=== PATIENT | male | born 1990 | race Caucasian/White ===

== ENCOUNTER 2016-12-16 14:58 | Emergency (ER) | payer MEDICAID ==
[~2016-12-16] VITALS: Wt 84.1 kg
[~2016-12-16 14:58] MED LIST: AUG875 PO; IBUP-1542 PO; OFLO5DRO7 RIGHT EAR
[2016-12-16 15:29] VITALS: RESP 18
[2016-12-16] MEDS ORDERED: LIDOCAINE/MYLANTA 40 ML BTL PO ONE (15:30)
--- NOTE | 2016-12-16 16:00 | ERD ---
ER Documentation Chief Complaint Date/Time DATE: 12/16/16 TIME: 15:58 Chief Complaint states he feels like something is stuck in his throat, airway intact HPI Patient is a 26-year-old male with no medical problems who presents with a sore throat. He said that he was given a smoothie to drink by his niece and that after he started drinking it she started laughing and that maybe there was something in the drink. He did not ask her if there was anything in the drink however and she did not tell him that there was. He feels like there might be something stuck in his neck and he says that when he moves his neck to the right or left he has pain. He has had no treatment as of yet. This happened today. He has no trouble speaking. He has no trouble breathing. He goes to a local clinic for his primary care. Upon review of old medical records the patient has multiple visits for various complaints. ROS All systems reviewed and are negative except as per history of present illness. Medications Home Meds Active Scripts Ibuprofen* (Motrin*) 600 Mg Tab, 600 MG PO Q6H Y for PAIN for 14 Days, TAB Prov:EJ MOHAN NP 05/18/15 Amoxicillin-Clavulanate K* (Augmentin*) 875 Mg Tab, 875 MG PO BID, #10 TAB Prov:CARLTON CARRILLO PA-C 01/02/15 Ofloxacin* (Floxin* Otic) 0.3% -10 Ml Soln, 10 DROP RIGHT EAR DAILY, #1 BOTTLE Prov:CARLTON CARRILLO PA-C 01/02/15 Allergies Allergies: Coded Allergies: acetaminophen (Verified Allergy, Mild, rash, 01/02/15) dextromethorphan (Verified Allergy, Mild, rash, 01/02/15) doxylamine (Verified Allergy, Mild, rash, 01/02/15) pseudoephedrine (Verified Allergy, Mild, rash, 01/02/15) PMhx/Soc History of Surgery: No Anesthesia Reaction: No Hx Neurological Disorder: No Hx Respiratory Disorders: No Hx Cardiac Disorders: No Hx Psychiatric Problems: No Hx Miscellaneous Medical Probl: No Hx Alcohol Use: Yes Hx Substance Use: No Hx Tobacco Use: Yes (OCCASSIONALLY) Smoking Status: Light tobacco smoker FmHx Family History: diabetes Physical Exam Vitals Vital Signs Date Time Temp Pulse Resp B/P Pulse Ox O2 Delivery O2 Flow Rate FiO2 12/16/16 15:29 18 98 Room Air 12/16/16 15:02 98.0 98 20 140/83 97 Physical Exam Const: No acute distress Head: Atraumatic Eyes: Normal Conjunctiva ENT: Normal External Ears, Nose and Mouth. No foreign body visualized Neck: Full range of motion..~ No meningismus. No stridor over the neck Resp: Clear to auscultation bilaterally Cardio: Regular rate and rhythm, no murmurs Abd: Soft, non tender, non distended. Normal bowel sounds Skin: No petechiae or rashes Back: No midline or flank tenderness Ext: No cyanosis, or edema Neur: Awake and alert Psych: Normal Mood and Affect Results 24 hrs Current Medications Medications (Trade) Dose Ordered Sig/Jovana Route PRN Reason Start Time Stop Time Status Last Admin Dose Admin Miscellaneous Medication (Gi Cocktail (2)) 40 ml ONCE ONCE PO 12/16/16 15:30 12/16/16 15:31 DC 12/16/16 15:25 Procedures/MDM Smoking Cessation Therapy: Pt. was lectured for greater than 3 minutes on the health risks of continued smoking and the benefits of cessation. Patient is a 26-year-old male who presents with a sore throat. I see no sign of foreign body ingestion at this time. There is no difficulty with swallowing or speaking. I believe the risks of doing imaging test outweigh the benefits in this case. The patient will be given a GI cocktail for systematic relief and can return if symptoms worsen. He should follow-up with a primary doctor within 24-48 hours. I doubt epiglottitis, retropharyngeal abscess, or peritonsillar abscess. Departure Diagnosis: Primary Impression: Sore throat Condition: Fair Patient Instructions: Self-Care for Sore Throats Referrals: Your doctor Additional Instructions: Call your primary care doctor TOMORROW for an appointment during the next 1-2 days.See the doctor sooner or return here if your condition worsens before your appointment time. TALITA WATT MD Dec 16, 2016 16:00
== END 2016-12-16 15:30 | disposition home or self-care (01) ==
LOC: FTE 14:58
DX: J02.9 Acute pharyngitis, unspecified (principal); F17.210 Nicotine dependence, cigarettes, uncomplicated
CPT/HCPCS: Z7502; Z7610; 99282

== ENCOUNTER 2017-02-27 10:59 | Emergency (ER) | payer OTHER ==
[~2017-02-27] VITALS: Ht 167.6 cm; Wt 117.0 kg
[2017-02-27 11:02] VITALS: Ht 167.6 cm; Wt 117.0 kg
[2017-02-27] MEDS ORDERED: TETRACAINE 0.5% 4 ML OPH RIGHT EYE ONE (11:30)
[2017-02-27] MEDS ORDERED: FLUORESCEIN STRIP RIGHT EYE ONE (11:30)
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
[2017-02-27] MEDS ORDERED: LIDOCAINE 1% (MDV) 20 ML INJ SC ONE (12:30)
[2017-02-27] MEDS ORDERED: DIPHTH/TET/ACEL PERTUSS (ADULT) 0.5 ML VIAL IM* ONE (12:30)
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
[2017-02-27] MEDS ORDERED: AMOX1TAB10 PO (13:40)
[2017-02-27 13:46] VITALS: BP 135/72; PULSE 72; RESP 16; TEMP 98.4
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
== END 2017-02-27 13:50 | disposition home or self-care (01) ==
LOC: FTE 10:59
DX: S02.30XA Fracture of orbital floor, unspecified side, initial encounter for closed fracture (principal); S01.81XA Laceration without foreign body of other part of head, initial encounter; Y04.0XXA Assault by unarmed brawl or fight, initial encounter
CPT/HCPCS: 12011; 70450; 70486; 72125; 90715; Z7502; Z7610

== ENCOUNTER 2018-02-10 17:56 | Emergency (ER) | END 2018-02-10 20:30 | disposition home or self-care (01) ==